=== PATIENT | female | born 1990 | race Two or more races ===

== ENCOUNTER 2020-11-20 18:32 | Emergency (ER) | payer SELFPAY ==
[2020-11-20] MEDS ORDERED: Sodium Chloride 0.9% 1,000 ML IV ONE (19:17)
[2020-11-20 20:22] LABS: BLOOD UREA NITROGEN,BUN 10 mg/dL (7.0-18.0); CARBON DIOXIDE,CO2 25.8 mmol/L (21.0-32.0); CHLORIDE,CL 99 mmol/L (98-107); GLUCOSE RANDOM 80 mg/dL (74-106); POTASSIUM,K 4.4 mmol/L (3.5-5.1); SODIUM,NA 135 mmol/L (136-145)
[2020-11-20] MEDS ORDERED: Acetaminophen 500 MG Tab PO ONE (20:51)
[2020-11-20] MEDS ORDERED: Ketorolac 30 MG/ML SDV IVPUSH ONE (20:51)
--- NOTE | 2020-11-20 20:52 | EDM.PDOC ---
ED HPI GENERAL MEDICAL PROBLEM - General Chief Complaint: Respiratory Problem Stated Complaint: COVID POSITIVE, SYMPTOMS NOT IMPROVING Time Seen by Provider: 11/20/20 18:39 Source of Information: Reports: Patient History Limitations: Reports: No Limitations - History of Present Illness INITIAL COMMENTS - FREE TEXT/NARRATIVE: HISTORY AND PHYSICAL: History of present illness: Patient is a 30-year-old female who presents emergency room today with concern of worsening COVID-19 infection. Patient states that she was diagnosed with COVID-19 on Sunday, 3 days ago. Patient states that she has been having symptoms for 7 days. Patient states over the past several days, she has had worsening shortness of breath and chest pain and states that she also has generalized body aches. Patient states she is also had a cough since her symptoms started 7 days ago, mild headache, and intermittent fevers and chills. Patient states that she is also been nauseous with a decreased appetite. Patient states she took a dose of Tylenol earlier today with mild improvement of symptoms. Patient denies any other health history. Patient denies any other symptoms or concerns. Patient denies neck stiff ness, change in vision, syncope, or near syncope. Denies vomiting, abdominal pain, diarrhea, constipation, or dysuria. Has not noted any blood in urine or stool. Review of systems: As per history of present illness and below otherwise all systems reviewed and negative. Past medical history: As per history of present illness and as reviewed below otherwise noncontributory. Surgical history: As per history of present illness and as reviewed below otherwise noncontributory. Social history: See social history for further information Family history: As per history of present illness and as reviewed below otherwise noncontributory. Physical exam: General: Patient is alert, oriented, and in no acute distress. Patient sitting comfortably on exam table, tired appearing. Patient is mildly tachycardic 108 on exam, otherwise vitally stable and reviewed by me. HEENT: Atraumatic, normocephalic, pupils equal and reactive bilaterally, negative for conjunctival pallor or scleral icterus, mucous membranes moist, throat clear, neck supple, nontender, trachea midline. No drooling or trismus noted. No meningeal signs. No hot potato voice noted. Lungs: Clear to auscultation, breath sounds equal bilaterally, chest nontender. Heart: S1S2, regular rate and rhythm without overt murmur Abdomen: Soft, nondistended, nontender. Negative for masses or hepatosplenomegaly. Negative for costovertebral tenderness. Pelvis: Stable nontender. Genitourinary: Deferred. Rectal: Deferred. Skin: Intact, warm, dry. No lesions or rashes noted. Extremities: Atraumatic, negative for cords or calf pain. Neurovascular unremarkable. Neuro: Awake, alert, oriented. Cranial nerves II through XII unremarkable. Cerebellum unremarkable. Motor and sensory unremarkable throughout. Exam nonfocal. Notes: Patient is a 30-year-old female with a known diagnosis of COVID-19 3 days ago, who presents emergency room today with concern of worsening shortness of breath and chest pain. Upon arrival to the ED, patient is mildly tachycardic 108 on exam, otherwise vitally stable and tired but otherwise well-appearing on exam. Will obtain cardiac evaluation, provide ibuprofen and Tylenol today in the e mergency room, and reassess patient. CBC shows mild decrease in white blood cell count at 3.35, otherwise mild derangements of CBC unremarkable. D-dimer is within normal limits. CMP shows mild hyponatremia of 135, otherwise mild derangements of CMP unremarkable. Troponin negative. hCG is negative. Chest x-ray unremarkable. Upon reevaluation of patient, she remains vitally stable and has improvement of her symptoms with therapeutics today in the emergency room. Strict return precautions thoroughly discussed with patient. Discussed importance for follow- up with a primary care provider following COVID-19 quarantine restrictions. Voices understanding and is agreeable to plan of care. Denies any further questions or concerns at this time. Diagnostics: EKG, CBC, CMP, chest x-ray, troponin, D-dimer Therapeutics: Tylenol, NS, Toradol Prescription: None Impression: COVID-19 infection Plan: 1. Your vital signs and oxygen saturation are well enough that you were able to monitor your symptoms at home. Continue to monitor for trouble breathing, new confusion or inability to arouse, bluish lips or face or any of the other symptoms we discussed -if this occurs please return to the emergency room.Continue to monitor your health at home for worsening symptoms so that you can be taken care of and treated quickly if needed. 2. Please self quarantine until 10 days have passed since your symptoms began AND you are fever free (<100.4 degrees fahrenheit) for 24 hours without the use of fever-reducing medications AND symptoms are improving. You should restrict activities outside of your home, except for getting medical care. Do not go to work, school, or public areas. Avoid using public transportation, ride-sharing, or taxis. 3. You may alternate Tylenol and ibuprofen as needed for pain and fever management. 4. The [facility] department will be calling you and following up with you. The [place] COVID 19 Hotline phone number , They are open Sunday - Sunday 7am - 7pm. Follow up with your primary care provider for re-evaluation and re-testing after quarantine and discuss when you should be seen. 5. For more specific guidelines regarding isolation/quarantine please visit this website. https://www.health.[place].gov/sites/www/files/documents/Files/HERMELINDO/coronavirus/Factsh eet_for_People_With_COVID-19.pdf Definitive disposition and diagnosis as appropriate pending reevaluation and review of above. generalized Pain Score (Numeric/FACES): 4 - Related Data Allergies Allergy/AdvReac Type Severity Reaction Status Date / Time No Known Allergies Allergy Verified 11/20/20 19:00 Home Meds: Home Meds . [No Known Home Meds] 11/20/20 [History] Past Medical History - Past Health History Medical/Surgical History: Denies Medical/Surgical History HEENT History: Reports: None Cardiovascular History: Reports: None Respiratory History: Reports: None Gastrointestinal History: Reports: None Genitourinary History: Reports: None COTTON SAMPLER History: Reports: None Musculoskeletal History: Reports: None Neurological History: Reports: None Psychiatric History: Reports: None Endocrine/Metabolic History: Reports: None Hematologic History: Reports: None Immunologic History: Reports: None Oncologic (Cancer) History: Reports: None Dermatologic History: Reports: None - Infectious Disease History Infectious Disease History: Reports: None - Past Surgical History Head Surgeries/Procedures: Reports: None Social & Family History - Family History Family Medical History: No Pertinent Family History - Tobacco Use Tobacco Use Status *Q: Never Tobacco User Second Hand Smoke Exposure: No - Caffeine Use Caffeine Use: Reports: None - Recreational Drug Use Recreational Drug Use: No ED ROS GENERAL - Review of Systems Review Of Systems: Comprehensive ROS is negative, except as noted in HPI. ED EXAM, GENERAL - Physical Exam Exam: See Below (See dictation) Course - Vital Signs Last Recorded V/S: Last Vital Signs Temp 98.5 F 11/20/20 21:24 Pulse 77 11/20/20 21:24 Resp 17 11/20/20 21:24 BP 112/72 11/20/20 21:24 Pulse Ox 99 11/20/20 21:24 - Orders/Labs/Meds Labs: Laboratory Tests 11/20/20 11/20/20 11/20/20 Range/Units 19:50 19:50 19:50 WBC 3.35 L (4.0-11.0) K/uL RBC 5.06 (4.30-5.90) M/uL Hgb 16.0 (12.0-16.0) g/dL Hct 44.9 (36.0-46.0) % MCV 88.7 (80.0-98.0) fL MCH 31.6 (27.0-32.0) pg MCHC 35.6 (31.0-37.0) g/dL RDW Std Deviation 38.7 (28.0-62.0) fl RDW Coeff of Breann 12 (11.0-15.0) % Plt Count 181 (150-400) K/uL MPV 11.50 (7.40-12.00) fL Neut % (Auto) 44.8 L (48.0-80.0) % Lymph % (Auto) 37.0 (16.0-40.0) % Gage % (Auto) 17.6 H (0.0-15.0) % Eos % (Auto) 0.3 (0.0-7.0) % Baso % (Auto) 0.3 (0.0-1.5) % Neut # (Auto) 1.5 (1.4-5.7) K/uL Lymph # (Auto) 1.2 (0.6-2.4) K/uL Gage # (Auto) 0.6 (0.0-0.8) K/uL Eos # (Auto) 0.0 (0.0-0.7) K/uL Baso # (Auto) 0.0 (0.0-0.1) K/uL Nucleated RBC % 0.0 /100WBC Nucleated RBCs # 0 K/uL D-Dimer, Quantitative 0.28 (0.0-0.50) mg/L FEU Sodium 135 L (136-145) mmol/L Potassium 4.4 (3.5-5.1) mmol/L Chloride 99 (98-107) mmol/L Carbon Dioxide 25.8 (21.0-32.0) mmol/L BUN 10 (7.0-18.0) mg/dL Creatinine 0.8 (0.6-1.0) mg/dL Est Cr Clr Drug Dosing 77.31 mL/min Estimated GFR (MDRD) > 60.0 ml/min Glucose 80 (74-106) mg/dL Calcium 8.4 L (8.5-10.1) mg/dL Total Bilirubin 0.3 (0.2-1.0) mg/dL AST 32 (15-37) IU/L ALT 38 (14-63) IU/L Alkaline Phosphatase 61 (46-116) U/L Troponin I < 0.050 (0.000-0.056) ng/mL Total Protein 7.7 (6.4-8.2) g/dL Albumin 3.9 (3.4-5.0) g/dL Globulin 3.8 (2.6-4.0) g/dL Albumin/Globulin Ratio 1.0 (0.9-1.6) HCG, Qual (NEG) 11/20/20 Range/Units 19:50 WBC (4.0-11.0) K/uL RBC (4.30-5.90) M/uL Hgb (12.0-16.0) g/dL Hct (36.0-46.0) % MCV (80.0-98.0) fL MCH (27.0-32.0) pg MCHC (31.0-37.0) g/dL RDW Std Deviation (28.0-62.0) fl RDW Coeff of Breann (11.0-15.0) % Plt Count (150-400) K/uL MPV (7.40-12.00) fL Neut % (Auto) (48.0-80.0) % Lymph % (Auto) (16.0-40.0) % Gage % (Auto) (0.0-15.0) % Eos % (Auto) (0.0-7.0) % Baso % (Auto) (0.0-1.5) % Neut # (Auto) (1.4-5.7) K/uL Lymph # (Auto) (0.6-2.4) K/uL Gage # (Auto) (0.0-0.8) K/uL Eos # (Auto) (0.0-0.7) K/uL Baso # (Auto) (0.0-0.1) K/uL Nucleated RBC % /100WBC Nucleated RBCs # K/uL D-Dimer, Quantitative (0.0-0.50) mg/L FEU Sodium (136-145) mmol/L Potassium (3.5-5.1) mmol/L Chloride (98-107) mmol/L Carbon Dioxide (21.0-32.0) mmol/L BUN (7.0-18.0) mg/dL Creatinine (0.6-1.0) mg/dL Est Cr Clr Drug Dosing mL/min Estimated GFR (MDRD) ml/min Glucose (74-106) mg/dL Calcium (8.5-10.1) mg/dL Total Bilirubin (0.2-1.0) mg/dL AST (15-37) IU/L ALT (14-63) IU/L Alkaline Phosphatase (46-116) U/L Troponin I (0.000-0.056) ng/mL Total Protein (6.4-8.2) g/dL Albumin (3.4-5.0) g/dL Globulin (2.6-4.0) g/dL Albumin/Globulin Ratio (0.9-1.6) HCG, Qual NEGATIVE (NEG) Meds: Medications Discontinued Medications Generic Name Dose Route Start Last Admin Trade Name Freq PRN Reason Stop Dose Admin Acetaminophen 1,000 mg 11/20/20 20:51 11/20/20 21:20 Acetaminophen 500 Mg Tab PO 11/20/20 20:52 1,000 mg ONETIME ONE Administration Sodium Chloride 1,000 mls @ 999 mls/hr 11/20/20 19:17 11/20/20 20:00 Normal Saline IV 11/20/20 20:17 999 mls/hr BOLUS ONE Administration Ketorolac Tromethamine 30 mg 11/20/20 20:51 11/20/20 21:20 Ketorolac 30 Mg/Ml Sdv IVPUSH 11/20/20 20:52 30 mg ONETIME ONE Administration Departure - Departure Time of Disposition: 21:47 Disposition: Home, Self-Care 01 Clinical Impression: COVID-19 virus infection - Discharge Information Instructions: COVID-19 Referrals: PCP,None [Primary Care Provider] - Forms: ED Department Discharge Additional Instructions: The following information is given to patients seen in the emergency department who are being discharged to home. This information is to outline your options for follow-up care. We provide all patients seen in our emergency department with a follow-up referral. The need for follow-up, as well as the timing and circumstances, are variable depending upon the specifics of your emergency department visit. If you don't have a primary care physician on staff, we will provide you with a referral. We always advise you to contact your personal physician following an emergency department visit to inform them of the circumstance of the visit and for follow-up with them and/or the need for any referrals to a consulting specialist. The emergency department will also refer you to a specialist when appropriate. This referral assures that you have the opportunity for follow-up care with a specialist. All of these measure are taken in an effort to provide you with optimal care, which includes your follow-up. Under all circumstances we always encourage you to contact your private physician who remains a resource for coordinating your care. When calling for follow-up care, please make the office aware that this follow-up is from your recent emergency room visit. If for any reason you are refused follow-up, please contact the [facility] Emergency Department at and asked to speak to the emergency department charge nurse. [facility] [address] [place] [id number] [id number] 1. Your vital signs and oxygen saturation are well enough that you were able to monitor your symptoms at home. Continue to monitor for trouble breathing, new confusion or inability to arouse, bluish lips or face or any of the other symptoms we discussed -if this occurs please return to the emergency room.Continue to monitor your health at home for worsening symptoms so that you can be taken care of and treated quickly if needed. 2. Please self quarantine until 10 days have passed since your symptoms began AND you are fever free (<100.4 degrees fahrenheit) for 24 hours without the use of fever-reducing medications AND symptoms are improving. You should restrict activities outside of your home, except for getting medical care. Do not go to work, school, or public areas. Avoid using public transportation, ride-sharing, or taxis. 3. You may alternate Tylenol and ibuprofen as needed for pain and fever management. 4. The [facility] department will be calling you and following up with you. The [place] COVID 19 Hotline phone number , They are open Sunday - Sunday 7am - 7pm. Follow up with your primary care provider for re-evaluation and re-testing after quarantine and discuss when you should be seen. 5. For more specific guidelines regarding isolation/quarantine please visit this website. https://www.health.[place].gov/sites/www/files/documents/Files/HERMELINDO/coronavirus/Factsh eet_for_People_With_COVID-19.pdf Sepsis Event Note (ED) - Evaluation Sepsis Screening Result: Possible Sepsis Risk - Focused Exam Vital Signs: Vital Signs Temp Pulse Resp BP Pulse Ox 11/20/20 21:24 98.5 F 77 17 112/72 99 11/20/20 18:51 99.8 F 108 H 18 133/85 99
--- NOTE | 2020-11-20 21:53 | CR ---
INDICATION: Shortness of breath TECHNIQUE: Single view chest. FINDINGS: The lungs are clear. The heart, mediastinum and pulmonary vessels are of normal size. There is no evidence of pleural disease. IMPRESSION: Negative chest. Dictated by Melody Mcknight MD @ 11/20/2020 9:52:24 PM (Electronically Signed)
--- NOTE | 2020-11-20 22:07 | PCM.EKG ---
#1 Interpretation EKG Interpretation Comments: EKG: November 20, 2020 7:31 PM As interpreted by ER physician: Lyn: Nonspecific ST-T wave abnormalities Normal axis No evidence of ST elevation DC Normal sinus rhythm heart rate of 98
== END 2020-11-20 22:00 | disposition home or self-care (01) ==
LOC: MW.ED 18:32
DX: U07.1 COVID-19 (principal)
CPT/HCPCS: 36415; 71045; 80053; 84484; 84703; 85025; 85379; 93005; 96374; 99285; A9270; J1885; J7030

== ENCOUNTER 2021-09-18 23:49 | Inpatient (IN) | payer SELFPAY ==
[2021-09-19] MEDS: Lactated Ringers 1,000 ML IV SCH ×2 (00:15→00:45)
[2021-09-19] MEDS ORDERED: Sodium Chloride 0.9% 10 ML Syringe FLUSH PRN (00:19)
[2021-09-19] MEDS ORDERED: Sodium Chloride 0.9% 2.5 ML Syringe FLUSH PRN (00:19)
[2021-09-19] MEDS ORDERED: Sodium Chloride 0.9% 20 ML SDV IV PRN (00:19)
[2021-09-19] MEDS ORDERED: Terbutaline 1 MG/ML SDV SUBCUT ONE (00:21)
[2021-09-19] MEDS ORDERED: Terbutaline 1 MG/ML SDV ONE (00:25)
[2021-09-19] MEDS ORDERED: Oxytocin/0.9 % Sodium Chloride 30 UNIT/500 ML BAG IV SCH (00:30)
[2021-09-19] MEDS ORDERED: ceFAZolin 1 GM Vial ONE (00:50)
[2021-09-19] MEDS ORDERED: fentaNYL 100 MCG/2 ML SDV ONE (00:50)
[2021-09-19] MEDS ORDERED: Lidocaine 2% 5 ML SDV ONE (00:50)
[2021-09-19] MEDS ORDERED: Ondansetron 4 MG/2 ML SDV ONE ×2 (00:50→01:05)
[2021-09-19] MEDS ORDERED: Phenylephrine 1% 10 MG/ML SDV ONE (00:50)
[2021-09-19] MEDS ORDERED: Oxytocin 10 Units/1 ML SDV ONE (00:50)
[2021-09-19] MEDS ORDERED: Dexamethasone 4 MG/ML 5 ML MDV ONE (00:50)
[2021-09-19] MEDS ORDERED: Ketorolac 30 MG/ML SDV ONE (00:51)
[2021-09-19] MEDS ORDERED: Morphine PF 10 MG/10 ML SDV ONE (00:51)
[2021-09-19] MEDS ORDERED: ceFAZolin 2 GM in Premix Bag 1 BAG IV ONE (01:00)
[2021-09-19] MEDS ORDERED: Meperidine PF 25 MG/ML SDV ONE (02:04)
[2021-09-19] MEDS ORDERED: Methylergonovine 0.2 MG/1 ML Amp IM PRN (02:09)
[2021-09-19] MEDS ORDERED: Lanolin 100% Cream 7 GM Tube TOP PRN (02:09)
[2021-09-19] MEDS ORDERED: Misoprostol 200 MCG Tab RECTAL PRN (02:09)
[2021-09-19] MEDS ORDERED: Ondansetron 4 MG/2 ML SDV IVPUSH PRN ×3 (02:09→02:12)
[2021-09-19] MEDS ORDERED: Bisacodyl 10 MG Supp RECTAL PRN (02:09)
[2021-09-19] MEDS ORDERED: diphenhydrAMINE 50 MG/ML SDV IVPUSH PRN ×2 (02:09→02:12)
[2021-09-19] MEDS ORDERED: Acetaminophen/oxyCODONE 325-5 MG Tab PO PRN ×2 (02:09→02:12)
[2021-09-19] MEDS ORDERED: Aluminum Hydroxide/Magnesium Hydroxide/Simethicone XS Susp 30 ML Cup PO PRN (02:09)
[2021-09-19] MEDS ORDERED: Tranexamic Acid 1,000 MG in Sodium Chloride 0.9% 100 ML IV PRN (02:09)
[2021-09-19] MEDS ORDERED: Oxytocin 10 Units/1 ML SDV IM PRN (02:09)
[2021-09-19] MEDS ORDERED: Ibuprofen 800 MG Tab PO PRN (02:09)
[2021-09-19] MEDS ORDERED: Naloxone 0.4 MG/ML SDV IVPUSH PRN (02:12)
[2021-09-19] MEDS ORDERED: HYDROmorphone 1 MG/ML Syringe IVPUSH PRN (02:12)
[2021-09-19] MEDS ORDERED: ePHEDrine 50 MG/ML SDV IVPUSH PRN (02:12)
[2021-09-19] MEDS ORDERED: Metoclopramide 10 MG/2 ML SDV IVPUSH PRN (02:12)
[2021-09-19] MEDS ORDERED: fentaNYL 100 MCG/2 ML SDV IVPUSH PRN (02:12)
[2021-09-19] MEDS ORDERED: Albuterol 0.083% 2.5 MG/3 ML Neb Soln NEB PRN (02:12)
[2021-09-19] MEDS ORDERED: Morphine 4 MG/ML VIAL IVPUSH PRN (02:12)
[2021-09-19] MEDS ORDERED: fentaNYL 50 MCG/ML SDV IVPUSH PRN (02:12)
[2021-09-19] MEDS ORDERED: Lactated Ringers 1,000 ML IV SCH (02:15)
[2021-09-19] MEDS ORDERED: Ketorolac 30 MG/ML SDV IVPUSH SCH (02:15)
[2021-09-19] MEDS: Ketorolac 30 MG/ML SDV IVPUSH SCH ×3 (08:26→20:17)
[2021-09-19] MEDS: Simethicone 80 MG Tab.Chew PO SCH ×4 (12:03→23:36)
[2021-09-19] MEDS: Docusate Sodium 100 MG Cap PO SCH ×2 (13:44→20:20)
[2021-09-19] MEDS ORDERED: hydrOXYzine Pamoate 25 MG Cap PO PRN (18:14)
[2021-09-20] MEDS: Ketorolac 30 MG/ML SDV IVPUSH SCH ×2 (02:21→08:32)
[2021-09-20] MEDS: Simethicone 80 MG Tab.Chew PO SCH ×4 (06:10→23:59)
[2021-09-20] MEDS: Docusate Sodium 100 MG Cap PO SCH ×2 (08:33→21:02)
[2021-09-20] MEDS: Acetaminophen/oxyCODONE 325-5 MG Tab PO PRN ×3 (11:57→22:32)
[2021-09-21] MEDS: Ibuprofen 800 MG Tab PO PRN ×2 (00:04→08:59)
[2021-09-21] MEDS: Acetaminophen/oxyCODONE 325-5 MG Tab PO PRN (04:39)
[2021-09-21] MEDS: Simethicone 80 MG Tab.Chew PO SCH ×2 (06:03→12:40)
[2021-09-21] MEDS: Docusate Sodium 100 MG Cap PO SCH (09:00)
== END 2021-09-21 13:00 | disposition home or self-care (01) | DRG 786 ==
LOC: MW.OBCHECK 23:49 → MW.OB 09-19 → MW.OBCHECK 09-19 → MW.OB 09-19 00:06 → OBSVTOIN 09-19 00:19 → MW.OB 09-19 09:20
PROVIDERS: ADMIT Obstetrics & Gynecology; ATTEND Obstetrics & Gynecology
PROC: 10D00Z1 Extraction of Products of Conception, Low, Open Approach (ICD-10-PCS; principal; 2021-09-19)
DX: O32.1XX0 Maternal care for breech presentation, not applicable or unspecified (principal); O60.14X0 Preterm labor third trimester with preterm delivery third trimester, not applicable or unspecified; O99.824 Streptococcus B carrier state complicating childbirth; Z3A.36 36 weeks gestation of pregnancy; Z37.0 Single live birth; O77.0 Labor and delivery complicated by meconium in amniotic fluid; Z20.822 Contact with and (suspected) exposure to COVID-19
CPT/HCPCS: 01961; 36415; 82803; 85014; 85018; 85027; 86592; 86850; 86900; 86901; A9270-GY; J0690; J1100; J1200; J1790; J1885; J2175; J2270; J2274; J2370; J2405; J2590; J3010; J3105; J7120; U0002

== ENCOUNTER 2023-02-10 14:12 | Inpatient (IN) | payer SELFPAY ==
[2023-02-10] MEDS ORDERED: Acetaminophen 325 MG Tab PO PRN (14:36)
[2023-02-10] MEDS ORDERED: Betamethasone Acetate/Betamethasone Sod Phosphate 6 MG/1 ML MDV IM ONE (14:36)
[2023-02-10 15:16] LABS: BASOPHILS ABSOLUTE AUTO 0.06 K/uL (0.00-0.20); BASOPHILS PERCENT AUTO 0.4 % (0.0-1.0); BILIRUBIN,URINE NEGATIVE (NEGATIVE); COLOR,URINE YELLOW; EOSINOPHILS ABSOLUTE AUTO 0.05 K/uL (0.00-0.45); EOSINOPHILS PERCENT AUTO 0.3 % (0.0-6.0); GLUCOSE,URINE NEGATIVE (NEGATIVE); HEMATOCRIT 38.8 % (37.0-47.0); HEMOGLOBIN 13.2 g/dL (12.0-16.0); IMMATURE GRAN ABSOLUTE AUTO 0.13 K/uL (0.00-0.05); IMMATURE GRAN PERCENT AUTO 0.8 % (0.0-0.4); KETONES,URINE 15 mg/dL (NEGATIVE); LEUKOCYTE ESTERASE,URINE NEGATIVE (NEGATIVE); LYMPHOCYTES ABSOLUTE AUTO 2.04 K/uL (1.00-4.80); LYMPHOCYTES PERCENT AUTO 13.2 % (24.0-44.0); MEAN CORPUSCULAR HEMOGLOBIN 30.2 pg (28.0-32.0); MEAN CORPUSCULAR VOLUME 88.8 fL (83.0-99.0); MEAN PLATELET VOLUME 11.6 fL (9.4-12.3); MONOCYTES ABSOLUTE AUTO 1.09 K/uL (0.00-0.80); MONOCYTES PERCENT AUTO 7.1 % (0.0-8.0); NEUTROPHILS ABSOLUTE AUTO 12.06 K/uL (1.80-7.70); NEUTROPHILS PERCENT AUTO 78.2 % (41.0-71.0); NITRITE,URINE NEGATIVE (NEGATIVE); OCCULT BLOOD,URINE TRACE-INTACT (NEGATIVE); PH,URINE 5.5 (5.0-8.0); PLATELET COUNT,PLT 195 K/uL (150-400); PROTEIN,URINE NEGATIVE (NEGATIVE); RED BLOOD CELL COUNT 4.37 M/uL (4.10-5.30); UROBILINOGEN,URINE 0.2 EU/dL (<2.0); WHITE BLOOD CELL COUNT,WBC 15.43 K/uL (3.9-11.3)
[2023-02-10 15:30] LABS: APPEARANCE,URINE HAZY
[2023-02-10] MEDS ORDERED: Ampicillin 2 GM Vial ONE (16:27)
[2023-02-10] MEDS ORDERED: Sodium Chloride 0.9% 100 ML ONE (16:27)
[2023-02-10] MEDS ORDERED: Azithromycin 500 MG in Sodium Chloride 0.9% 250 ML IV ONE (16:31)
[2023-02-10] MEDS ORDERED: Misoprostol 200 MCG Tab RECTAL PRN (16:33)
[2023-02-10] MEDS ORDERED: Citric Acid/Sodium Citrate Solution 30 ML Cup PO ONE (16:33)
[2023-02-10] MEDS ORDERED: Methylergonovine 0.2 MG/1 ML Amp IM PRN (16:33)
[2023-02-10] MEDS ORDERED: diphenhydrAMINE 50 MG/ML SDV IVPUSH PRN ×2 (16:33→19:01)
[2023-02-10] MEDS ORDERED: Sodium Chloride 0.9% 2.5 ML Syringe FLUSH PRN (16:33)
[2023-02-10] MEDS ORDERED: Sodium Chloride 0.9% 10 ML Syringe FLUSH PRN (16:33)
[2023-02-10] MEDS ORDERED: Sodium Chloride 0.9% 20 ML SDV IV PRN (16:33)
[2023-02-10] MEDS ORDERED: Oxytocin 10 Units/1 ML SDV IM PRN (16:33)
[2023-02-10] MEDS ORDERED: Lanolin 100% Cream 7 GM Tube TOP PRN (16:33)
[2023-02-10] MEDS ORDERED: Acetaminophen/oxyCODONE 325-5 MG Tab PO PRN ×2 (16:33→19:01)
[2023-02-10] MEDS ORDERED: Bisacodyl 10 MG Supp RECTAL PRN (16:33)
[2023-02-10] MEDS ORDERED: Ondansetron 4 MG/2 ML SDV IVPUSH PRN ×3 (16:33→19:01)
[2023-02-10] MEDS ORDERED: Oxytocin/0.9 % Sodium Chloride 30 UNIT/500 ML BAG IV SCH ×2 (16:45)
[2023-02-10] MEDS ORDERED: Lactated Ringers 1,000 ML IV SCH ×2 (16:45)
[2023-02-10] MEDS ORDERED: Water For Injection, Sterile 20 ML ONE (16:53)
[2023-02-10] MEDS ORDERED: ceFAZolin 1 GM Vial ONE (16:53)
[2023-02-10] MEDS ORDERED: Oxytocin 10 Units/1 ML SDV ONE ×3 (16:54→17:47)
[2023-02-10] MEDS ORDERED: Dexamethasone 4 MG/ML 5 ML MDV ONE (16:54)
[2023-02-10] MEDS ORDERED: Ropivacaine 0.5% 5 MG/ML 30 ML SDV ONE (16:54)
[2023-02-10] MEDS ORDERED: Ketorolac 30 MG/ML SDV ONE (16:54)
[2023-02-10] MEDS ORDERED: dexmedeTOMIDine HCl 200 MCG/2 ML SDV ONE (16:54)
[2023-02-10] MEDS ORDERED: droPERidol 5 MG/2 ML SDV ONE (16:54)
[2023-02-10] MEDS ORDERED: Tranexamic Acid 1,000 MG/10 ML Vial ONE (16:54)
[2023-02-10] MEDS ORDERED: ePHEDrine 50 MG/ML SDV ONE (16:54)
[2023-02-10] MEDS ORDERED: Morphine PF 10 MG/10 ML SDV ONE (16:54)
[2023-02-10] MEDS ORDERED: Ondansetron 4 MG/2 ML SDV ONE ×2 (16:54→17:57)
[2023-02-10] MEDS ORDERED: fentaNYL 100 MCG/2 ML SDV ONE (16:55)
[2023-02-10] MEDS ORDERED: Ketorolac 30 MG/ML SDV IVPUSH SCH (17:00)
[2023-02-10] MEDS ORDERED: Azithromycin 500 MG Vial ONE (17:30)
[2023-02-10] MEDS ORDERED: Metoclopramide 10 MG/2 ML SDV ONE (17:57)
[2023-02-10] MEDS ORDERED: Propofol 200 MG/20 ML SDV ONE (18:03)
[2023-02-10] MEDS ORDERED: Morphine 2 MG/ML SYRINGE IVPUSH PRN (19:01)
[2023-02-10] MEDS ORDERED: HYDROmorphone 1 MG/ML Syringe IVPUSH PRN (19:01)
[2023-02-10] MEDS ORDERED: ePHEDrine 50 MG/ML SDV IVPUSH PRN (19:01)
[2023-02-10] MEDS ORDERED: Naloxone 0.4 MG/ML SDV IVPUSH PRN (19:01)
[2023-02-10] MEDS ORDERED: fentaNYL 50 MCG/ML SDV IVPUSH PRN (19:01)
[2023-02-10] MEDS ORDERED: droPERidol 5 MG/2 ML SDV IVPUSH PRN (19:01)
[2023-02-10] MEDS ORDERED: Albuterol 0.083% 2.5 MG/3 ML Neb Soln NEB PRN (19:01)
[2023-02-10] MEDS ORDERED: fentaNYL 100 MCG/2 ML SDV IVPUSH PRN (19:01)
[2023-02-10] MEDS ORDERED: Metoclopramide 10 MG/2 ML SDV IVPUSH PRN (19:01)
[2023-02-10] MEDS: Acetaminophen 1,000 MG in Premix Bag 1 BAG IV SCH (20:26)
[2023-02-10] MEDS: Ketorolac 30 MG/ML SDV IVPUSH SCH (21:00)
[2023-02-10] MEDS: Docusate Sodium 100 MG Cap PO SCH (21:39)
[2023-02-11] MEDS: Acetaminophen 1,000 MG in Premix Bag 1 BAG IV SCH ×3 (02:49→15:49)
[2023-02-11] MEDS: Ketorolac 30 MG/ML SDV IVPUSH SCH ×3 (03:05→15:48)
[2023-02-11 06:30] LABS: HEMATOCRIT 32.6 % (37.0-47.0); MEAN CORPUSCULAR HEMOGLOBIN 30.1 pg (28.0-32.0); MEAN CORPUSCULAR HGB CONC 33.7 g/dL (32.0-36.0); MEAN CORPUSCULAR VOLUME 89.3 fL (83.0-99.0); MEAN PLATELET VOLUME 11.5 fL (9.4-12.3); PLATELET COUNT,PLT 186 K/uL (150-400); RED BLOOD CELL COUNT 3.65 M/uL (4.10-5.30); WHITE BLOOD CELL COUNT,WBC 23.81 K/uL (3.9-11.3)
[2023-02-11] MEDS: Docusate Sodium 100 MG Cap PO SCH ×2 (08:20→22:25)
[2023-02-11] MEDS: Acetaminophen/oxyCODONE 325-5 MG Tab PO PRN (22:30)
[2023-02-12] MEDS: Acetaminophen/oxyCODONE 325-5 MG Tab PO PRN ×3 (06:15→20:01)
[2023-02-12] MEDS: Ibuprofen 800 MG Tab PO PRN (06:16)
[2023-02-12] MEDS: Docusate Sodium 100 MG Cap PO SCH ×2 (08:30→20:00)
[2023-02-13] MEDS: Ibuprofen 800 MG Tab PO PRN (06:17)
[2023-02-13] MEDS: Docusate Sodium 100 MG Cap PO SCH (08:56)
== END 2023-02-13 15:00 | disposition home or self-care (01) | DRG 787 ==
LOC: MW.OBCHECK 14:12 → MW.OB 14:13 → MW.OBCHECK 17:00 → OBSVTOIN 17:43 → MW.OB 17:43
PROVIDERS: ADMIT Obstetrics & Gynecology; ATTEND Obstetrics & Gynecology
PROC: 0T9B70Z Drainage of Bladder with Drainage Device, Via Natural or Artificial Opening (ICD-10-PCS; 2023-02-10)
PROC: 10D00Z1 Extraction of Products of Conception, Low, Open Approach (ICD-10-PCS; principal; 2023-02-10 17:41)
DX: O42.013 Preterm premature rupture of membranes, onset of labor within 24 hours of rupture, third trimester (principal); D62 Acute posthemorrhagic anemia; O99.824 Streptococcus B carrier state complicating childbirth; O36.8330 Maternal care for abnormalities of the fetal heart rate or rhythm, third trimester, not applicable or unspecified; Z3A.34 34 weeks gestation of pregnancy; Z37.0 Single live birth; O34.211 Maternal care for low transverse scar from previous cesarean delivery; O69.81X0 Labor and delivery complicated by cord around neck, without compression, not applicable or unspecified; O99.03 Anemia complicating the puerperium
CPT/HCPCS: 36415; 59025; 81003; 84112; 85025; 85027; 86592; 86850; 86900; 86901; A9270-GY; J0131; J0290; J0456; J0690; J0702; J1100; J1200; J1790; J1885; J2274; J2405; J2590; J2704; J2765; J2795; J3010; J3490